=== PATIENT | female | born 1950 | race Caucasian/White ===

== ENCOUNTER → 2017-01-12 | Outpatient (CLI) | payer MEDICARE, OTHER ==
[~2017-01-12] MED LIST: ASPI-557 PO; ATOR20TA59 PO; BUDE0.5A AEROSOL; CARV12.52 PO; FURO80TA3 PO; GABA-336 PO; HYDR-4180 PO; INSU100V SQ; INSU100V8 SQ; ISOS60TA4 PO; LABE100T PO; PARO-38 PO; TRAZ-170 PO
--- NOTE | 2017-01-13 19:53 | ECHOF ---
DATE OF PROCEDURE 01/12/2017 INDICATIONS This is a two-dimensional echo with spectral Doppler, color-flow, and M-mode. It was obtained in a patient with cardiomyopathy. DESCRIPTION OF PROCEDURE Left atrium is dilated. Left ventricular end-diastolic dimension is normal. Left ventricular wall thickness is increased. LV systolic function is reduced with global hypokinesia with ejection fraction of about 25%. Right atrium is dilated. Right ventricle is dilated. Aortic root dimension is normal. Mitral valve is morphologically normal with moderate mitral regurgitation. Aortic valve is a trileaflet structure with no stenosis. Mild aortic insufficiency is present. Tricuspid valve shows [id number] tricuspid regurgitation with moderate pulmonary hypertension with estimated pulmonary artery systolic pressure of 58. Pulmonary valve shows mild pulmonary insufficiency. There is no pericardial effusion. IMPRESSION 1. Global hypokinesia with ejection fraction of about 25%. 2. Biatrial dilation. 3. Right ventricular dilation. 4. Pleural effusion present. 5. Moderate mitral regurgitation. 6. Mild aortic insufficiency. 7. Left ventricular hypertrophy. 8. Mild aortic insufficiency. 9. [id number] tricuspid regurgitation with moderate pulmonary hypertension with estimated pulmonary artery systolic pressure of 58. 10. Mild pulmonary insufficiency. MTDD
== END ==
LOC: IMA 11:47
PROVIDERS: ATTEND Internal Medicine Cardiovascular Disease
DX: I08.3 Combined rheumatic disorders of mitral, aortic and tricuspid valves (principal); I27.2 Other secondary pulmonary hypertension; J90 Pleural effusion, not elsewhere classified; I42.8 Other cardiomyopathies
CPT/HCPCS: 93306